=== PATIENT | female | born 1960 | race Caucasian/White ===

== ENCOUNTER 2017-04-15 10:16 | Day surgery (SDC) | payer OTHER ==
[2017-04-14 11:36] LABS: HEMATOCRIT 40.9 % (36.0-48.0); HEMOGLOBIN 14.1 g/dL (12.0-16.0)
[2017-04-14 11:49] LABS: BUN (BLOOD UREA NITROGEN) 19 MG/DL (6-23); CALCIUM, SERUM 8.7 MG/DL (8.5-10.4); CHLORIDE, SERUM 107 MMOL/L (96-112); CO2 (CARBON DIOXIDE) 30 MMOL/L (24-34); CREATININE 0.71 MG/DL (0.55-1.02); GFR AFRICAN AMERICAN 110 ML/MIN (>=60); GFR NON AFRICAN AMERICAN 95 ML/MIN (>=60); GLUCOSE, SERUM 95 MG/DL (60-99); POTASSIUM, SERUM 4.1 MMOL/L (3.5-5.3); SODIUM, SERUM 140 MMOL/L (135-148)
--- NOTE | ~2017-04-15 | OP ---
Record Of Operation [facility] [address] [place]. [address] NAME: MARTA NORIEGA : 58 STATUS : REG [facility] [place] PAT#: [id number] AGE: 56 ADM/REG DATE : 04/15/17 MR#: [id number] REPORT SERV DATE: 04/15/17 DICTATED BY: JUANITO PASCUAL III DATE: 04/15/17 REPORT STATUS : Draft TRANSCRIBED BY: MODRobson DATE: 04/15/17 DATE OF PROCEDURE: 04/15/2017 PREOPERATIVE DIAGNOSIS: Torn posterior horn of the medial meniscus, and lateral meniscus. POSTOPERATIVE DIAGNOSIS: Torn posterior horn of the medial meniscus, and lateral meniscus, with grade 3 chondromalacia, medial femoral condyle. SURGICAL PROCEDURE PERFORMED: 1. Arthroscopic excision, complex tear, posterior horn of the medial meniscus, and posterior horn of lateral meniscus, right knee. 2. Abrasion and thermal chondroplasty, medial femoral condyle. GEOGRAPHY INSTRUCTOR: Magui Carrion. ANESTHESIA: General. ANTIBIOTICS: Ancef 2 g. COMPLICATIONS: None. PROCEDURE IN DETAIL: The patient was brought to the operative room, placed on the table in supine position, and general anesthesia was induced. 2 g was administered intravenously in the preop holding area. Pneumatic tourniquet was applied to the right upper thigh along with the arthroscopic leg amaya. Right lower extremity was prepped and draped in the usual sterile fashion. It was exsanguinated with a 6-inch Esmarch. Tourniquet was inflated to 350 mmHg. Assuring good anesthesia, a standard anterolateral portal was provided. The arthroscope was inserted. The knee was inflated with sterile normal saline by means of the arthroscopic pump. Suprapatellar pouch was free of any loose bodies. There were some chondral loose bodies which were removed with a suction shaver through an anteromedial portal. Patellofemoral joint had grade 2 changes to the femoral sulcus. The intercondylar notch revealed a normal appearing anterior cruciate ligament. The infrapatellar fat pad and synovial tissue was debrided and for better visualization. Medial compartment had a complex tear to the posterior horn, and medial meniscus with an oblique tear, which could be displaced into the joint. This was debrided with both the straight and angled ducklings, contoured with a 4.5 shaver. Abrasion chondroplasty was carried out. The weightbearing zone of the medial femoral condyle along with contra wand for thermal chondroplasty. The lateral compartment revealed a tear to the posterior horn and lateral meniscus. This was debrided both with straight and angled ducklings, contoured with a 4.5 shaver. The inner edge of the lateral meniscus was frayed and this was debrided with a 4.[address] around to the anterior horn and it was contoured with a contra wand. No further pathology was appreciated. Thorough irrigation was carried out. Instrumentation was removed. Portals were closed with 4-0 nylon. The knee was injected with 30 mL of 0.5% Marcaine solution without epinephrine. Sterile dressings were applied. The patient tolerated the procedure well and brought to recovery room in satisfactory condition. Record Of Operation [place] [id number] [facility] [place]. [address] NAME: MARTA NORIEGA : 58 STATUS : REG [facility] [place] PAT#: [id number] AGE: 56 ADM/REG DATE : 04/15/17 MR#: [id number] REPORT SERV DATE: 04/15/17 DICTATED BY: JUANITO PASCUAL III DATE: 04/15/17 REPORT STATUS : Draft TRANSCRIBED BY: ARNAV DATE: 04/15/17 TB/ARNAV Juanito Pascual III, M.D. / [id number] CC: Chandu Trujillo III, CHARITY A
[~2017-04-15 10:16] MED LIST: MULTIPLE VIT PO; NIACIN 500 MG PO; OMEGA-3 PO; VIT C 500 MG PO; VIT E PO; ZINC GLUCONATE 50 MG PO; [UNRECOGNIZED DRUG - OTHER]; [UNRECOGNIZED DRUG - REMARK]
== END 2017-04-15 23:59 | disposition home or self-care (01) ==
LOC: MSC 10:16
PROVIDERS: Orthopaedic Surgery
PROC: 0SBC4ZZ Excision of Right Knee Joint, Percutaneous Endoscopic Approach (ICD-10-PCS; principal; 2017-04-15 12:00)
DX: S83.241A Other tear of medial meniscus, current injury, right knee, initial encounter (principal); S83.281A Other tear of lateral meniscus, current injury, right knee, initial encounter; E03.9 Hypothyroidism, unspecified; J45.909 Unspecified asthma, uncomplicated; M19.90 Unspecified osteoarthritis, unspecified site; Z88.1 Allergy status to other antibiotic agents; Z88.5 Allergy status to narcotic agent; Z88.8 Allergy status to other drugs, medicaments and biological substances; Z90.49 Acquired absence of other specified parts of digestive tract; Z98.51 Tubal ligation status; Z98.890 Other specified postprocedural states
CPT/HCPCS: 80048; 85014; 85018; 93005; A9270-GY; J0690; J1040; J2175; J2250; J2405; J2550; J3010